=== PATIENT | female | born 1965 | race Caucasian/White ===

== ENCOUNTER 2023-04-06 07:58 | Day surgery (SDC) | payer MEDICAID ==
[~2023-04-06] VITALS: Ht 152.4 cm; Wt 54.0 kg
[2023-04-06] MEDS ORDERED: SIMETHICONE 40 MG/0.6 ML ML ONE (08:59)
[2023-04-06] MEDS: fentaNYL CITRATE/PF 100 MCG/2 ML AMP ONE ×2 (09:18→09:20)
[2023-04-06] MEDS: MIDAZOLAM HCL 5 MG/5 ML VIAL ONE ×2 (09:18→09:20)
[2023-04-06 14:04] VITALS: BP_SYST 189; PULSE 96; RESP 16; TEMP 98.4; O2SAT 98
== END 2023-04-06 10:54 | disposition home or self-care (01) ==
LOC: SDS 07:58 → SMU 07:59 → SDS 10:54
PROVIDERS: ATTEND Internal Medicine
DX: Z12.11 Encounter for screening for malignant neoplasm of colon (principal); K29.50 Unspecified chronic gastritis without bleeding; K21.9 Gastro-esophageal reflux disease without esophagitis; E78.5 Hyperlipidemia, unspecified; I12.0 Hypertensive chronic kidney disease with stage 5 chronic kidney disease or end stage renal disease; N18.6 End stage renal disease; Z79.899 Other long term (current) drug therapy
CPT/HCPCS: 45378; 43239; 87081; 82962; 36415; 88305; 88312; 88313; 99152; G0378; J2250; J3010